=== PATIENT | female | born 1935 | race Caucasian/White ===

== ENCOUNTER → 2018-01-31 | Outpatient (CLI) | payer OTHER ==
[~2018-01-31] MED LIST: ACET325 PO; ADVANCED IRON PO; ALBIPROI INH; ALBU.083IS IH; ALBU90OI61 INH; ALEN70 PO; AMIT10 PO; AMLO5 PO; ASCO500 PO; ASPI325 PO; ASPI325EC PO; ASPI81CH PO; ASPI81EC PO; Accuneb0.63 MG/3; Aspirin EC325 MG PO; BENZ100A PO; BUDE6HFA INH; BUPR100 PO; BUPR100ER PO; Boniva150 MG PO; CALCIUM; CALGLU500 PO; CEFP200 PO; CEFU500 PO; CHOL10002 PO; CLOP75 PO; COLC.6 PO; COMBIVENT; COMPOUND CREAM; DALIRESP500 MCG PO; DOCU100 PO; DOXY100 PO; DULERA 200 MCG/13 GM INH; ESTR1 PO; FAMO20 PO; FEBU40TA PO; FLUSAL2505 IH; FLUSAL5005 INH; FOLI400 PO; FURO20 PO; FURO40 PO; GABA300 PO; HYDACE5 PO; IBAN2.5 PO; IRON325 MG PO; LEVFLO500 PO; LEVSOD25 PO; LEVSOD50 PO; LORA.5 PO; LOSA50 PO; LOVA40 PO; MONT10T PO; MSM; MULVITMIND PO; N-ACETYL-L-CYS600 MG PO; NAC; OXYACE5T PO; PANT40 PO; POTCHL10ER PO; PRED20 PO; PRED5 PO; PROLIA; Prednisone10 MG PO; RANI150 PO; ROFL500T PO; SACC250C PO; Synthroid25 MCG PO; TAMS.4ER PO; TIOT18 INH; TIZANIDINE HCL4 MG PO; VICODIN HP 10-1 EACH PO; Ventolin Soln3 ML INH; WARF4 PO; WARF5 PO; ZOLP5 PO; Zanaflex4 M1 PO
== END ==
LOC: LAB SHORT 14:33 → LAB EV 14:33
DX: N39.0 Urinary tract infection, site not specified (principal)
CPT/HCPCS: 87086

== ENCOUNTER → 2018-06-30 | Outpatient (CLI) | payer OTHER ==
[2018-06-30 15:29] LABS: BASOPHILS ABSOLUTE AUTO 0.02 K/mm3 (0.00-0.23); BASOPHILS PERCENT AUTO 0 % (0-2); EOSINOPHILS ABSOLUTE AUTO 0.01 K/mm3 (0.00-0.68); EOSINOPHILS PERCENT AUTO 0 % (0-6); Hematocrit 33.7 % (33.0-51.0); IMMATURE GRAN ABSOLUTE AUTO 0.08 K/mm3 (0.00-0.10); IMMATURE GRAN PERCENT AUTO 1 % (0-1); LYMPHOCYTES ABSOLUTE AUTO 0.61 K/mm3 (0.84-5.20); LYMPHOCYTES PERCENT AUTO 4 % (21-46); MONOCYTES ABSOLUTE AUTO 1.27 K/mm3 (0.16-1.47); MONOCYTES PERCENT AUTO 9 % (4-13); Mean Corpuscular HGB 29.2 pg (26.0-34.0); Mean Corpuscular HGB Conc 29.7 g/dL (31.5-36.5); Mean Corpuscular Volume 99 fL (80-100); Mean Platelet Volume 9.1 fL (9.1-12.4); NEUTROPHILS ABSOLUTE AUTO 12.81 K/mm3 (1.96-9.15); NEUTROPHILS PERCENT AUTO 87 % (41-73); Platelet Count 657 K/mm3 (150-400); RDW Coefficient Variation 15.3 % (11.7-14.2); RDW Standard Deviation 54.9 fL (35.1-46.3); Red Blood Cell Count 3.42 M/mm3 (3.80-5.20)
[2018-06-30 15:35] LABS: Albumin, Blood 3.6 g/dL (3.4-5.0); Albumin/Globulin Ratio 0.9 (0.8-1.8); Bilirubin, Total 0.3 mg/dL (0.1-1.0); Bun/Creatinine Ratio 14.9 (12.0-20.0); Calcium, Blood 8.2 mg/dL (8.5-10.1); Creatinine, Blood 2.22 mg/dL (0.40-1.00); Globulin, Blood 3.8 g/dL (2.2-4.0); Potassium, Blood 3.7 mmol/L (3.5-5.5); Total Protein, Blood 7.4 g/dL (6.4-8.2)
== END | disposition home or self-care (01) ==
LOC: LAB EV 15:21 → LAB SHORT 15:21
PROVIDERS: Physician Assistant Surgical
DX: R06.00 Dyspnea, unspecified (principal)
CPT/HCPCS: 80048; 80053; 83880; 85025

== ENCOUNTER 2018-11-29 00:20 | Emergency (ER) | payer OTHER ==
[~2018-11-29] VITALS: Ht 162.6 cm; Wt 47.6 kg
[2018-11-29 01:14] LABS: BASOPHILS ABSOLUTE AUTO 0.02 K/mm3 (0.00-0.23); BASOPHILS PERCENT AUTO 0 % (0-2); EOSINOPHILS PERCENT AUTO 0 % (0-6); Hematocrit 27.8 % (33.0-51.0); Hemoglobin 8.5 g/dL (11.5-16.0); IMMATURE GRAN ABSOLUTE AUTO 0.14 K/mm3 (0.00-0.10); IMMATURE GRAN PERCENT AUTO 1 % (0-1); LYMPHOCYTES ABSOLUTE AUTO 0.47 K/mm3 (0.84-5.20); LYMPHOCYTES PERCENT AUTO 3 % (21-46); MONOCYTES ABSOLUTE AUTO 0.63 K/mm3 (0.16-1.47); MONOCYTES PERCENT AUTO 4 % (4-13); Mean Corpuscular HGB 29.2 pg (26.0-34.0); Mean Corpuscular HGB Conc 30.6 g/dL (31.5-36.5); Mean Corpuscular Volume 96 fL (80-100); Mean Platelet Volume 8.8 fL (9.1-12.4); NEUTROPHILS ABSOLUTE AUTO 14.51 K/mm3 (1.96-9.15); NEUTROPHILS PERCENT AUTO 92 % (41-73); Platelet Count 700 K/mm3 (150-400); RDW Coefficient Variation 14.6 % (11.7-14.2); RDW Standard Deviation 50.4 fL (35.1-46.3); Red Blood Cell Count 2.91 M/mm3 (3.80-5.20); White Blood Cell Count 15.77 K/mm3 (4.00-11.30)
[2018-11-29] MEDS ORDERED: FURO40 PO (01:22)
[2018-11-29] MEDS ORDERED: FERSU90EL PO (01:23)
[2018-11-29] MEDS ORDERED: MSM1000 MG PO (01:24)
[2018-11-29] MEDS ORDERED: LOVA40 (01:24)
[2018-11-29] MEDS ORDERED: NAC600 MG PO (01:24)
[2018-11-29] MEDS ORDERED: ALBU3IS (01:26)
[2018-11-29] MEDS ORDERED: BENZ100A (01:26)
[2018-11-29] MEDS ORDERED: HYDR-86 (01:26)
[2018-11-29] MEDS ORDERED: SYNVISC (01:26)
[2018-11-29] MEDS ORDERED: LIDO5TO TOP (01:27)
[2018-11-29 01:33] LABS: Albumin, Blood 2.8 g/dL (3.4-5.0); Albumin/Globulin Ratio 0.7 (0.8-1.8); Bilirubin, Total 0.2 mg/dL (0.1-1.0); Bun/Creatinine Ratio 16.7 (12.0-20.0); Calcium, Blood 9.3 mg/dL (8.5-10.1); Creatinine, Blood 3.66 mg/dL (0.40-1.00); Globulin, Blood 3.9 g/dL (2.2-4.0); Potassium, Blood 3.8 mmol/L (3.5-5.5); Total Protein, Blood 6.7 g/dL (6.4-8.2)
[2018-11-29 01:48] LABS: PO2 Arterial 62.8 mmHg (80-100); pH Blood Arterial 7.47 (7.35-7.45)
[2018-11-29] MEDS ORDERED: Augmentin 500-1 EACH PO (02:42)
== END 2018-11-29 03:15 | disposition home or self-care (01) ==
LOC: ER 00:20
PROVIDERS: Emergency Medicine
DX: R09.02 Hypoxemia (principal); Z91.012 Allergy to eggs; Z88.1 Allergy status to other antibiotic agents; Z88.2 Allergy status to sulfonamides; Z88.8 Allergy status to other drugs, medicaments and biological substances; Z79.82 Long term (current) use of aspirin; Z79.899 Other long term (current) drug therapy; Z79.891 Long term (current) use of opiate analgesic; J44.9 Chronic obstructive pulmonary disease, unspecified; Z87.891 Personal history of nicotine dependence
CPT/HCPCS: 36415; 36600; 71046; 80053; 82803; 83605; 85025; 87040; 87070; 87077; 87186; 87205; 93005; 93010; 94640; 96365; 99285-25; J0696

== ENCOUNTER 2018-12-18 11:58 | Inpatient (IN) | payer OTHER ==
[~2018-12-18] VITALS: Ht 152.4 cm; Wt 47.8 kg
[~2018-12-18 11:58] MED LIST changes: +ALBU3IS; +Augmentin 500-1 EACH PO; +BENZ100A; +FERSU90EL PO; +HYDR-86; +LIDO5TO TOP; +LOVA40; +MSM1000 MG PO; +NAC600 MG PO; +SYNVISC
[2018-12-18 13:19] LABS: BASOPHILS ABSOLUTE AUTO 0.08 K/mm3 (0.00-0.23); BASOPHILS PERCENT AUTO 0 % (0-2); EOSINOPHILS ABSOLUTE AUTO 0.05 K/mm3 (0.00-0.68); EOSINOPHILS PERCENT AUTO 0 % (0-6); Hematocrit 30.4 % (33.0-51.0); Hemoglobin 9.1 g/dL (11.5-16.0); IMMATURE GRAN ABSOLUTE AUTO 0.14 K/mm3 (0.00-0.10); IMMATURE GRAN PERCENT AUTO 1 % (0-1); LYMPHOCYTES ABSOLUTE AUTO 0.43 K/mm3 (0.84-5.20); LYMPHOCYTES PERCENT AUTO 2 % (21-46); MONOCYTES ABSOLUTE AUTO 0.97 K/mm3 (0.16-1.47); MONOCYTES PERCENT AUTO 4 % (4-13); Mean Corpuscular HGB 29.2 pg (26.0-34.0); Mean Corpuscular HGB Conc 29.9 g/dL (31.5-36.5); Mean Corpuscular Volume 97 fL (80-100); Mean Platelet Volume 8.8 fL (9.1-12.4); NEUTROPHILS ABSOLUTE AUTO 22.87 K/mm3 (1.96-9.15); NEUTROPHILS PERCENT AUTO 93 % (41-73); Platelet Count 569 K/mm3 (150-400); RDW Coefficient Variation 15.9 % (11.7-14.2); RDW Standard Deviation 55.8 fL (35.1-46.3); Red Blood Cell Count 3.12 M/mm3 (3.80-5.20); White Blood Cell Count 24.54 K/mm3 (4.00-11.30)
[2018-12-18 13:24] LABS: Albumin/Globulin Ratio 0.7 (0.8-1.8); Bilirubin, Total 0.3 mg/dL (0.1-1.0); Bun/Creatinine Ratio 12.6 (12.0-20.0); Calcium, Blood 10.5 mg/dL (8.5-10.1); Creatinine, Blood 2.86 mg/dL (0.40-1.00); Globulin, Blood 4.2 g/dL (2.2-4.0); Potassium, Blood 3.6 mmol/L (3.5-5.5); Total Protein, Blood 7.2 g/dL (6.4-8.2)
[2018-12-18 14:37] LABS: Source, Urine Clean Catch
[2018-12-18 14:51] LABS: Appearance, Urine Hazy (Clear); Bilirubin, Urine Neg (Neg); Blood, Urine 1+ (Neg); Color, Urine Yellow (P-Yellow); Glucose Qualitative, Urine Neg (Neg); Ketones, Urine Neg (Neg); Leukocyte Esterase, Urine 1+ (Neg); Nitrite, Urine Neg (Neg); Protein, Urine Neg (Neg); Specific Gravity, Urine 1.025 (1.003-1.022); Urobilinogen, Urine NORM (Normal)
[2018-12-18 15:11] LABS: Bacteria Few /hpf; Squamous Epithelial Cells Mod /hpf (Few)
[2018-12-18] MEDS ORDERED: **INCOMPLETE MED REC (17:22)
[2018-12-18] MEDS ORDERED: [UNRECOGNIZED DRUG - CODE] PO (17:57)
[2018-12-18] MEDS ORDERED: GABA600 PO (18:26)
[2018-12-18] MEDS ORDERED: PRED1 PO (18:27)
[2018-12-18] MEDS ORDERED: RAYALDEE30 MCG PO (18:28)
[2018-12-18] MEDS ORDERED: BREO ELLIPTA 21 EACH INH (18:30)
[2018-12-18] MEDS ORDERED: FEBU40TA PO (18:32)
[2018-12-18] MEDS ORDERED: COMBIVENT RESPIM4 GM INH (18:32)
[2018-12-18] MEDS ORDERED: ROFL500T PO (18:33)
[2018-12-18] MEDS ORDERED: Synthroid25 MCG PO (18:35)
[2018-12-18] MEDS ORDERED: FAMO20 PO (18:35)
[2018-12-18] MEDS ORDERED: Wellbutrin Sr200 MG PO (18:36)
[2018-12-18] MEDS ORDERED: Aspirin EC81 MG PO (18:38)
[2018-12-18] MEDS ORDERED: CHOL10002 (18:41)
[2018-12-18] MEDS ORDERED: FOLI400 PO (18:42)
--- NOTE | 2018-12-18 19:15 | NUR ---
ADMIT NOTE RECEIVED REPORT FROM SABIHA MORROW RN IN ED. PT TO ROOM VIA [facility], 3 PERSON TRANSFER ASSIST TO BED WITH SLIDER SHEET. ATTEDNS SOILD AND CHANGED ON ADMISSION. PT ORIENTED TO ROOM AND CALL LIGHT SYSTEM. PT EDUCATED ON FALL RISK AND BED ALARM PLACED. PT TO ROOM AT 1853. WILL MONITOR UNTIL REPORT GIVEN TO ONCOMING RN.
[2018-12-18] MEDS ORDERED: BENZ100A PO (19:23)
[2018-12-18] MEDS ORDERED: Norco 5-325 Ta1 EACH PO (19:24)
[2018-12-18] MEDS ORDERED: LOVA40 PO (19:24)
[2018-12-19 05:21] LABS: BASOPHILS ABSOLUTE AUTO 0.03 K/mm3 (0.00-0.23); BASOPHILS PERCENT AUTO 0 % (0-2); EOSINOPHILS ABSOLUTE AUTO 0.44 K/mm3 (0.00-0.68); EOSINOPHILS PERCENT AUTO 3 % (0-6); Hematocrit 29.7 % (33.0-51.0); Hemoglobin 8.6 g/dL (11.5-16.0); IMMATURE GRAN ABSOLUTE AUTO 0.08 K/mm3 (0.00-0.10); IMMATURE GRAN PERCENT AUTO 1 % (0-1); LYMPHOCYTES ABSOLUTE AUTO 0.81 K/mm3 (0.84-5.20); LYMPHOCYTES PERCENT AUTO 5 % (21-46); MONOCYTES ABSOLUTE AUTO 0.91 K/mm3 (0.16-1.47); MONOCYTES PERCENT AUTO 6 % (4-13); Mean Corpuscular HGB 28.5 pg (26.0-34.0); Mean Corpuscular Volume 98 fL (80-100); Mean Platelet Volume 9.1 fL (9.1-12.4); NEUTROPHILS ABSOLUTE AUTO 14.12 K/mm3 (1.96-9.15); NEUTROPHILS PERCENT AUTO 86 % (41-73); Platelet Count 506 K/mm3 (150-400); RDW Coefficient Variation 15.7 % (11.7-14.2); RDW Standard Deviation 56.7 fL (35.1-46.3); Red Blood Cell Count 3.02 M/mm3 (3.80-5.20); White Blood Cell Count 16.39 K/mm3 (4.00-11.30)
[2018-12-19 05:40] LABS: Albumin, Blood 2.8 g/dL (3.4-5.0); Albumin/Globulin Ratio 0.8 (0.8-1.8); Bilirubin, Total 0.4 mg/dL (0.1-1.0); Bun/Creatinine Ratio 15.5 (12.0-20.0); Calcium, Blood 10.6 mg/dL (8.5-10.1); Creatinine, Blood 2.45 mg/dL (0.40-1.00); Globulin, Blood 3.7 g/dL (2.2-4.0); Magnesium, Blood 2.2 mg/dL (1.6-2.4); Potassium, Blood 3.4 mmol/L (3.5-5.5); Total Protein, Blood 6.5 g/dL (6.4-8.2)
--- NOTE | 2018-12-19 06:26 | NUR ---
Rn summary: Patient has been sleeping almost all shift. Pt at beginning of shift would just laugh when asked questions. Family member states this is a new thing over the last couple of days. Pt did not try and get out of bed, bed alarm on. This am, when vital signs taken, pt is talking with SHOOK SPLICER, seemed to be appropriate. Pt was incontinent of urine. Wearing attends. Pt with O2 at 2.5 liters. Dry nonproductive cough. Lungs with fine crackles radha bases on admit. No edema. Pt call light in reach. sleeping at this time. Bed alarm remains on.
--- NOTE | 2018-12-19 15:55 | NUR ---
Initial Visit: Palliative Care Consult for goals of care including end of life/comfort care. Pt resting in bed upon arrival. She is pleasantly confused and denies pain at this time. She denies dyspnea but appears moderately SOB when speaking as evidenced of work of breathing when speaking. She can verbalize 1 to 2 word answers. She is A&O x1. Attempted to engage in conversation and due to her SOB and difficulty in response she became mildly frustrated. Asked Pt if she would like this RN to talk with family and she states yes. Medical records indicate Amanda Marko [phone] as NOK and POA. POA indicated Amanda has POA of financial but not healthcare decisions. Called son Mohsen [phone] and he reports Amanda also has Pt's Living Will. Educated Mohsen on Pt's condition and Dr's plan for family to consider end of life care. Mohsen states that he is not surprised and has been a long time coming. He states his wishes are for his mom to pass away in her sleep. He deneis any furthur need for questions and denies any other concerns. Attempted to contact Amanda by phone with no success. Left message on voicemail asking for her to call palliative care. Plan is to discuss end of life care with Amanda and to obtain copy of living will from Amanda.
--- NOTE | 2018-12-19 19:37 | NUR ---
SHIFT SUMMARY: NO ACUTE CHANGES TO REPORT THIS SHIFT. PT A&O; OCCASIONAL CONFUSION; CALM AND COOPERATIVE WITH CARE. IV STEROIDS & IV ABX CONTINUING. REPORT GIVEN TO ONCOMING RN.
[2018-12-20 05:17] LABS: BASOPHILS ABSOLUTE AUTO 0.01 K/mm3 (0.00-0.23); BASOPHILS PERCENT AUTO 0 % (0-2); EOSINOPHILS PERCENT AUTO 0 % (0-6); Hemoglobin 7.5 g/dL (11.5-16.0); IMMATURE GRAN ABSOLUTE AUTO 0.12 K/mm3 (0.00-0.10); IMMATURE GRAN PERCENT AUTO 1 % (0-1); LYMPHOCYTES ABSOLUTE AUTO 0.43 K/mm3 (0.84-5.20); LYMPHOCYTES PERCENT AUTO 3 % (21-46); MONOCYTES ABSOLUTE AUTO 0.69 K/mm3 (0.16-1.47); MONOCYTES PERCENT AUTO 4 % (4-13); Mean Corpuscular HGB 29.3 pg (26.0-34.0); Mean Corpuscular Volume 98 fL (80-100); Mean Platelet Volume 9.1 fL (9.1-12.4); NEUTROPHILS PERCENT AUTO 93 % (41-73); Platelet Count 493 K/mm3 (150-400); RDW Coefficient Variation 15.2 % (11.7-14.2); RDW Standard Deviation 54.3 fL (35.1-46.3); Red Blood Cell Count 2.56 M/mm3 (3.80-5.20); White Blood Cell Count 17.05 K/mm3 (4.00-11.30)
[2018-12-20 06:03] LABS: Bun/Creatinine Ratio 21.4 (12.0-20.0); Calcium, Blood 11.1 mg/dL (8.5-10.1); Creatinine, Blood 2.1 mg/dL (0.40-1.00); Potassium, Blood 3.9 mmol/L (3.5-5.5)
--- NOTE | 2018-12-20 09:26 | NUR ---
PT STATUS PT REFUSING MEDICATIONS THIS MORNING. PT NON-COMMUNICATIVE. PT NOT EATING BREAKFAST. ATTEMPTED TO FLUSH IV, PT JERKING ARM AWAY AND REFUSING CARE. PT REMOVES NASAL CANNULA & RESISTS STAFF'S EFFORTS TO PUT IT BACK ON. PT DESATS WITHOUT O2, UNABLE TO KEEP ADMINISTERING O2.
--- NOTE | 2018-12-20 09:47 | NUR ---
UPDATE - PT STATUS PT SUDDENLY BECAME ALERT AT 0947 HRS. COMPLIED WITH CARE OFFERED. ALLOWED ME TO FLUSH HER IV AND TOOK HER MEDICATIONS.
--- NOTE | 2018-12-20 11:45 | NUR ---
PT. ARRIVED TO FLOOR VIA FROM ROOM #325. PT. ALERT AND COOPERATIVE, SET HER IN CHAIT WITH ALARM. PT. APPEARS TO BE ORIENTED BUT SEARCHING FOR WORDS WHEN CONVERSING . PT. ALL SMILES.
--- NOTE | 2018-12-20 18:44 | NUR ---
PT. SITTING IN BED AFTEER EATING DINNER WHICH A FRIEND BROUGHT HER. PT. HAS BEEN APPROPRIATE SINCE COMING TO FLOOR. NO NOTEABLE CHANGES THIS SHIFT.
--- NOTE | 2018-12-21 06:38 | NUR ---
12/21/18 0600 SLEEPING AT PRESENT. AWAKENED EARLIER FOR AM MED. DENIES ANY PAIN OR S/S. OCC EPISODES OF COUGHING THROUGHTOUT NIGHT. VITALS STABLE.ENCOURAGED ORAL INTAKE THROUGHTOUT SHIFT. UP TO THE BR WITH WALKER AND ASSISTENCE PRN TO VOID.
--- NOTE | 2018-12-21 12:04 | NUR ---
PT REMOVED IV THIS MORNING. DR WIGGINS VERBALIZED NO NEED TO PLACE NEW IV. HE STATES HE WILL CHANGE HER MEDICATIONS TO PO.
--- NOTE | 2018-12-21 19:29 | NUR ---
PT TO BE DISCHARGED TOMM. TRANSPORTATION MUST BE SCHEDULED FOR PT TO DISCHARGE AT 11AM, ONCOMING NURSE INFORMED. PT WILL GO HOME WITH DAUGHTER ON HOSPICE. NO IV ACCESS PER TODAY. ALL MEDS SWITCHED TO PO. IV WAS PULLED OUT BY PT THIS AM. PT SLEEPS VERY DEEPLY, HARD TO AROUSE. WHEN UP PT IS MORE COOPERATIVE. PT TAKES MEDS WHOLE WITH WATER. 2L OF O2 ON AT BASELINE. NON PRODUCTIVE COUGH. ASPIRATION PREC. MUST SIT UP WITH MEALS AND MEDS. BED ALARMS ON. NO C/O PAIN TODAY. CALL LIGHT IN REACH
--- NOTE | 2018-12-22 04:41 | NUR ---
SHIFT SUMMARY PT VERY SLEEPY THIS EVENING. ASLEEP AT START OF SHIFT. PT UNCOOPERATIVE WHEN SLEEPING. CAN WAKE PT BUT SHE REFUSES TO LET YOU DO ANYTHING WHEN WOKEN AND GOES RIGHT BACK TO SLEEP. PLEASANT WHEN AWAKE. REMAINS ON 2 L O2 BUT REMOVES AT TIMES AND WILL NOT LET YOU REPLACE IT. PT SLEEPING IN BED AGAIN AT THIS TIME. VSS. NO ACUTE CHANGES. WILL CONTINUE TO MONITOR AND REPORT TO DAY RN.
[2018-12-22] MEDS ORDERED: ALBU2.5V5 NEB (11:53)
[2018-12-22] MEDS ORDERED: FURO40 PO (11:53)
[2018-12-22] MEDS ORDERED: PRED10 PO (11:54)
[2018-12-22] MEDS ORDERED: Amoxicillin500 M1 PO (11:55)
--- NOTE | 2018-12-22 15:25 | NUR ---
SHIFT SUMMARY/DC PT HAD NO ACUTE CHANGES THIS SHJIFT, NO COMPLAINTS OF ANY KIND. SPOKE W/DIL 2X FOR DC PLANNING ARRANGEMENTS. PT WAS TRANSPORTED VIA [facility] W/C TO DC @ 1235. FAMILY NOTIFIED WHEN PT LEFT.
== END 2018-12-22 12:52 | disposition hospice, home (50) | DRG 871 ==
LOC: ER 11:58 → MEDS 18:02 → ER 18:44 → MEDS 18:57 → ENPENDDIS 12-22 09:39 → MEDS 12-22 12:52
PROVIDERS: Emergency Medicine; Internal Medicine; ADMIT Student in an Organized Health Care Education/Training Program
DX: A41.81 Sepsis due to Enterococcus (principal); J18.9 Pneumonia, unspecified organism; G93.41 Metabolic encephalopathy; J44.1 Chronic obstructive pulmonary disease with (acute) exacerbation; J44.0 Chronic obstructive pulmonary disease with (acute) lower respiratory infection; N18.5 Chronic kidney disease, stage 5; N39.0 Urinary tract infection, site not specified; J96.11 Chronic respiratory failure with hypoxia; D63.1 Anemia in chronic kidney disease; F03.90 Unspecified dementia, unspecified severity, without behavioral disturbance, psychotic disturbance, mood disturbance, and anxiety; Z51.5 Encounter for palliative care; I27.20 Pulmonary hypertension, unspecified; E11.22 Type 2 diabetes mellitus with diabetic chronic kidney disease; E03.9 Hypothyroidism, unspecified; F17.200 Nicotine dependence, unspecified, uncomplicated; Z66 Do not resuscitate; Z99.81 Dependence on supplemental oxygen; Z86.73 Personal history of transient ischemic attack (TIA), and cerebral infarction without residual deficits; Z88.2 Allergy status to sulfonamides; Z88.8 Allergy status to other drugs, medicaments and biological substances; Z91.012 Allergy to eggs; Z79.82 Long term (current) use of aspirin; Z79.51 Long term (current) use of inhaled steroids; Z79.52 Long term (current) use of systemic steroids; Z79.899 Other long term (current) drug therapy; Z86.718 Personal history of other venous thrombosis and embolism; Z95.5 Presence of coronary angioplasty implant and graft
CPT/HCPCS: 36415; 70450; 71046; 80048; 80053; 81001; 82947; 83605; 83735; 84145; 85025; 87040; 87077; 87086; 87186; 93005; 93010; 94640; 94760; 96361; 96365; 97162; 97166; 97530; 99285-25; J0696; J2920; J7030